=== PATIENT | male | born 1995 | race Caucasian/White ===

== ENCOUNTER 2021-07-22 20:45 | Emergency (ER) | payer SELFPAY ==
[~2021-07-22] VITALS: Ht 172.7 cm; Wt 73.0 kg
[2021-07-22 21:27] LABS: URINE BILIRUBIN - DIPSTICK NEGATIVE (NEGATIVE); URINE BLOOD DIPSTICK LARGE (NEGATIVE); URINE COLOR YELLOW; URINE GLUCOSE - DIPSTICK NEGATIVE (NEGATIVE); URINE KETONE NEGATIVE (NEGATIVE); URINE PROTEIN - DIPSTICK 30 mg/dL (NEG-TRACE); URINE SPECIFIC GRAVITY >=1.030; URINE UROBILINOGEN - DIPSTICK 0.2 E.U./dL (0.2)
[2021-07-22 21:28] LABS: URINE LEUK ESTERASE SMALL (NEGATIVE); URINE NITRITE - DIPSTICK NEGATIVE (Negative)
[2021-07-22 21:36] LABS: URINE BACTERIA FEW hpf; URINE WBC >100 WBC/hpf (0-5)
[2021-07-22] MEDS ORDERED: VIBRAMYCIN100 M2 PO (21:37)
[2021-07-22 21:40] VITALS: BP 125/90
== END 2021-07-22 21:45 | disposition home or self-care (01) | DRG 728 ==
LOC: ED 20:45
PROVIDERS: Family Medicine
DX: A64 Unspecified sexually transmitted disease (principal); F17.210 Nicotine dependence, cigarettes, uncomplicated

== ENCOUNTER 2022-10-11 10:50 | Emergency (ER) | payer SELFPAY ==
[2022-10-11] VITALS (10 sets, daily range): BP systolic 110–142; BP diastolic 76–97
[~2022-10-11] VITALS: Ht 172.7 cm; Wt 74.8 kg
[~2022-10-11 10:50] MED LIST: VIBRAMYCIN100 M2 PO
[2022-10-11 11:52] LABS: BASO% 0.4 % (0-3); EOS% 1.2 % (0-8); IMMATURE GRANULOCYTES 0.8 % (0.0-5.0); LYMPH% 13.5 % (15-41); MEAN CORPUSCULAR HGB 29.2 pG CALC (26.0-32.0); MEAN CORPUSCULAR HGB CONC 30.6 g/dL CAL (32.0-36.0); MONO% 5.7 % (2-13); NEUT# 9.59 thou/uL (1.82-7.42); NEUT% 78.4 % (42-76); RED BLOOD COUNT 4.21 mill/uL (4.70-6.10); RED CELL DISTRI WIDTH 12.8 % (11.5-15.5)
[2022-10-11 11:58] LABS: HEMATOCRIT 40.2 % (39.0-50.0); HEMOGLOBIN 12.3 g/dl (14.0-18.0); MEAN CELL VOLUME 95.5 fL CALC (80.0-100.0)
[2022-10-11 12:12] LABS: ALBUMIN 4.1 g/dL (3.2-5.0); BILIRUBIN, TOTAL 0.5 mg/dL (0.2-1.3); BUN 12 mg/dL (9-20); BUN/CREATININE RATIO 14 (12-20 (CALC)); C-REACTIVE PROTEIN 2.4 mg/dL (0-0.9); CHLORIDE 106 mmol/l (95-108); CREATININE 0.9 mg/dL (0.7-1.3); GFR FOR AFR.AMER. > 60 ML/MIN (>=60 (CALC)); GFR OTHER RACES > 60 ML/MIN (>=60 (CALC)); POTASSIUM 3.7 mmol/l (3.5-5.1); SGOT/AST 31 u/l (17-59); SODIUM 140 mmol/l (137-146)
[2022-10-11 12:14] LABS: ALKALINE PHOSPHATASE 83 u/l (38-126); ANION GAP 10 (6-22 (CALC)); CARBON DIOXIDE 28 mmol/l (22-30); TOTAL PROTEIN 7.9 g/dL (6.3-8.2)
[2022-10-11] MEDS ORDERED: VIBRAMYCIN100 M2 PO (13:45)
[2022-10-11] MEDS ORDERED: KEFLEX500 MG PO (13:45)
== END 2022-10-11 14:32 | disposition left against medical advice (07) | DRG 603 ==
LOC: ED 10:50
PROVIDERS: Nurse Practitioner
DX: L03.116 Cellulitis of left lower limb (principal); L97.829 Non-pressure chronic ulcer of other part of left lower leg with unspecified severity; L97.819 Non-pressure chronic ulcer of other part of right lower leg with unspecified severity; L03.115 Cellulitis of right lower limb; B95.0 Streptococcus, group A, as the cause of diseases classified elsewhere; L98.499 Non-pressure chronic ulcer of skin of other sites with unspecified severity; F17.210 Nicotine dependence, cigarettes, uncomplicated; Z53.29 Procedure and treatment not carried out because of patient's decision for other reasons

== ENCOUNTER 2022-10-12 15:33 | Emergency (ER) | payer SELFPAY ==
[~2022-10-12] VITALS: Ht 172.7 cm; Wt 77.1 kg
[~2022-10-12 15:33] MED LIST changes: +KEFLEX500 MG PO
[2022-10-12 15:42] VITALS: BP 125/83
[2022-10-12 15:45] VITALS: BP 134/74
[2022-10-12 15:52] VITALS: BP 134/74
== END 2022-10-12 15:55 | disposition home or self-care (01) | DRG 603 ==
LOC: ED 15:33
DX: L03.116 Cellulitis of left lower limb (principal); L03.115 Cellulitis of right lower limb; F17.210 Nicotine dependence, cigarettes, uncomplicated